=== PATIENT | male | born 1965 | race Caucasian/White ===

== ENCOUNTER 2021-03-10 22:08 | Inpatient (IN) ==
[2021-03-10] MEDS ORDERED: ALBUTEROL HFA 8 GM INHALER INH ONE (22:31)
[2021-03-10] MEDS ORDERED: SODIUM CHLORIDE 0.9% 1000ML 1,000 ML IV SCH (22:45)
--- NOTE | 2021-03-10 23:06 | Emergency Department Note ---
History of Present Illness General Chief complaint: Illness Stated complaint: POSITIVE FOR COVID, NOT GETTING BETTER Time Seen by Provider: 03/10/21 22:13 History of Present Illness Maximum Pain Intensity: 8 This 55-year-old presents to the ER complaining of worsening Covid symptoms Location: Generalized Quality: Hard to breathe Severity: Moderate Duration: Past 2 days Timing: Symptoms started a week ago Context: Patient was concerned and came in Modifying factors: better with rest; worse with activity Patient did a CVS test and was +1-week ago. Symptoms are gotten progressively worse. Patient complains of cough, difficulty breathing, body aches, malaise and generally not feeling well. 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 Pulse ox was 91% on room air. Home Medications Medication Instructions Recorded Confirmed Type clobetasol 1 applic TOPICAL BID 03/10/21 03/10/21 History gabapentin 800 mg PO TID 03/10/21 03/10/21 History meloxicam 15 mg PO HS 03/10/21 03/10/21 History omeprazole 40 mg PO DAILY 03/10/21 03/10/21 History tramadol 100 mg PO Q6 PRN 03/10/21 03/10/21 History Allergies Allergy/AdvReac Type Severity Reaction Status Date / Time No Known Allergies Allergy Unverified 03/10/21 22:43 Past Med/Surg History Medical History Back pain GERD (gastroesophageal reflux disease) Surgical History No pertinent past surgical history Social History Smoking Status: Never smoker Hx Alcohol Use: Yes Alcohol type: beer, wine and hard liquor Hx Substance Use: No Preferred Language: Greek Communication Ability: Effective 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 Beliefs That Will Affect Care: None Current Living Situation: Spouse Other Information That Helps Us Care for You: No Feels Safe at Home: Yes Safety Concerns: Feels Safe At This Time Assistive Devices: Glasses Review of Systems A total of 10 systems reviewed and were otherwise negative Physical Exam Vital Signs Vital Signs - 24 hr 03/10/21 22:10 Temperature 36.2 C L Temperature Source Temporal Artery Scan Pulse Rate 93 H Pulse Rhythm Regular Pulse Strength Normal Respiratory Rate 20 Respiratory Effort / Characteristics Non-Labored Respiratory Depth Normal Respiratory Pattern Regular Blood Pressure Position Sitting Pulse Oximetry 91 Oxygen Delivery Method Room Air Sepsis Recent Fever Within 48 Hours Yes Sepsis New/Unexplained Change in Mental Status No Sepsis Action Taken by Nursing No Action Required VITALS: Vitals are noted on the nurse's note and reviewed by myself. Vital signs pulse ox 91% on room air. GENERAL: Ill-appearing male coughing who I placed on nasal cannula and seems somewhat better. SKIN: The skin was without rashes, erythema, edema, or bruising. There is no tenting of the skin. Capillary reflex less than 2 seconds. HEAD: Normocephalic atraumatic. EARS: External auditory canals clear, tympanic membranes pearly [place] without erythema or effusion bilaterally. EYES: Pupils equal round and reactive to light and accommodation. Conjunctivae without injection, sclerae without icterus. Extraocular movements intact. NOSE: Patent, turbinates without inflammation or discharge. No sinus tenderness. MOUTH: Mucous membranes mildly dry. Pharynx without erythema or exudate. Uvula midline. Airway patent. Tongue does not deviate. NECK: Supple without nuchal rigidity. No lymphadenopathy. No thyromegaly. Cervical spine is nontender. No JVD. HEART: Regular rate and rhythm. LUNGS: Mild diffuse inspiratory and end expiratory wheezes, No retractions or accessory muscle use. ABDOMEN: Positive bowel sounds x 4. Normal tympanic percussion. Soft, nontender, without masses or organomegaly. Pitt sign negative. No guarding or rebound tenderness. No CVA tenderness MUSCULOSKELETAL: No muscle atrophy, erythema, or edema noted. NEURO: Patient was alert and oriented to person place and time. Normal sensation to light and sharp touch. No focal neurological deficits. Course Administered Medications Doxycycline Hyclate 100 mg/ (Dextrose) 110 mls @ 50 mls/hr IV NOW STA Stop: 03/11/21 02:04 Last Admin: 03/11/21 01:31 Dose: 50 mls/hr Documented by: [id number] Lactated Ringer's (Lr) 1,000 mls @ 500 mls/hr IV .Q2H STA Stop: 03/11/21 02:18 Last Admin: 03/11/21 01:38 Dose: 500 mls/hr Documented by: [id number] Discontinued Medications Albuterol (Albuterol Hfa 8 Gm Inhaler) 2 puffs INH NOW ONE Stop: 03/10/21 22:32 Last Admin: 03/10/21 23:00 Dose: 2 puffs Documented by: [id number] Sodium Chloride (Nss 1000ml) 1,000 mls @ 999 mls/hr IV .Q1H1M JANICE Stop: 03/10/21 23:45 Last Infusion: 03/11/21 00:41 Dose: 0 mls/hr Documented by: [id number] Admin: 03/10/21 23:00 Dose: 999 mls/hr Documented by: [id number] Dexamethasone (Decadron) 1.5 mls @ 1 mls/min IV ONE STA Stop: 03/10/21 23:32 Last Admin: 03/11/21 00:20 Dose: 1 mls/min Documented by: [id number] Ioversol (Optiray 300 100ml) 90 ml IV ONCE ONE Stop: 03/11/21 00:00 Last Admin: 03/11/21 00:00 Dose: 90 ml Documented by: [id number] Oxycodone HCl (Oxycodone Hcl Ir 5 Mg Tab (Immediate Release)) 5 mg PO NOW STA Stop: 03/10/21 23:54 Last Admin: 03/11/21 00:20 Dose: 5 mg Documented by: [id number] Medical Decision Making Medical Records Attestation: I reviewed the patient's medical records. Home Medications Current Medication List: was personally reviewed by me Laboratory Data Attestation: I reviewed the patient's lab results. Result diagrams: 03/10/21 23:26 03/10/21 23:26 Lab Results 03/10/21 03/10/21 03/10/21 Range/Units 22:47 22:47 23:26 WBC 6.22 (4.8-10.8) K/uL RBC 5.34 (4.7-6.1) M/uL Hgb 17.4 (14.0-18.0) g/dL Hct 50.9 (42-52) % MCV 95.3 (80-100) fL MCH 32.6 (25-34) pg MCHC 34.2 (32-36) g/dL RDW Std Deviation 46.9 H (36.4-46.3) fL RDW Coeff of Mary 13.4 (11.5-14.5) % Plt Count 195 (130-400) K/uL MPV 10.8 H (7.4-10.4) fL Immature Gran % (Auto) 0.2 % Neut % (Auto) 72.9 % Lymph % (Auto) 18.0 % Gonzales % (Auto) 8.5 % Eos % (Auto) 0.2 % Baso % (Auto) 0.2 % Neut # (Auto) 4.54 (1.4-6.5) K/uL Lymph # (Auto) 1.12 L (1.2-3.4) K/uL Gonzales # (Auto) 0.53 (0.11-0.59) K/uL Eos # (Auto) 0.01 (0-0.5) K/uL Baso # (Auto) 0.01 (0-0.2) K/uL Immature Gran # (Auto) 0.01 (0.00-0.02) K/uL PT (9.0-12.0) Seconds INR (0.9-1.1) APTT (21.0-31.0) Seconds PTT Ratio Sodium (136-145) mmol/L Potassium (3.5-5.1) mmol/L Chloride (98-107) mmol/L Carbon Dioxide (21-32) mmol/L Anion Gap (3-11) BUN (7-18) mg/dl Creatinine (0.6-1.4) mg/dl Est Cr Clr Drug Dosing ml/min Est GFR ( Amer) Est GFR (Non-Af Amer) BUN/Creatinine Ratio (10-20) Glucose (70-99) mg/dl Lactate (0.4-2.0) mmol/L Calcium (8.5-10.1) mg/dl Magnesium (1.8-2.4) mg/dl Total Bilirubin (0.2-1) mg/dl AST (15-37) U/L ALT (12-78) U/L Alkaline Phosphatase (45-117) U/L Troponin I (0-0.045) ng/ml Total Protein (6.4-8.2) gm/dl Albumin (3.4-5.0) gm/dl Globulin (2.5-4.0) gm/dl Albumin/Globulin Ratio (0.9-2) Lipase (73-393) U/L COVID-19 Eval Order CovFluRsv at [facility] SARS-CoV-2 (PCR) POSITIVE A* (Negative) Influenza Type A (PCR) Negative (Neg) Influenza Type B (PCR) Negative (Neg) RSV (RT-PCR) Negative (Neg) 03/10/21 03/10/21 03/10/21 Range/Units 23:26 23:26 23:26 WBC (4.8-10.8) K/uL RBC (4.7-6.1) M/uL Hgb (14.0-18.0) g/dL Hct (42-52) % MCV (80-100) fL MCH (25-34) pg MCHC (32-36) g/dL RDW Std Deviation (36.4-46.3) fL RDW Coeff of Mary (11.5-14.5) % Plt Count (130-400) K/uL MPV (7.4-10.4) fL Immature Gran % (Auto) % Neut % (Auto) % Lymph % (Auto) % Gonzales % (Auto) % Eos % (Auto) % Baso % (Auto) % Neut # (Auto) (1.4-6.5) K/uL Lymph # (Auto) (1.2-3.4) K/uL Gonzales # (Auto) (0.11-0.59) K/uL Eos # (Auto) (0-0.5) K/uL Baso # (Auto) (0-0.2) K/uL Immature Gran # (Auto) (0.00-0.02) K/uL PT 11.0 (9.0-12.0) Seconds INR 1.1 (0.9-1.1) APTT 27.3 (21.0-31.0) Seconds PTT Ratio 1.0 Sodium 140 (136-145) mmol/L Potassium 4.3 (3.5-5.1) mmol/L Chloride 106 (98-107) mmol/L Carbon Dioxide 30 (21-32) mmol/L Anion Gap 4.0 (3-11) BUN 13 (7-18) mg/dl Creatinine 1.05 (0.6-1.4) mg/dl Est Cr Clr Drug Dosing 100.1 ml/min Est GFR ( Amer) 92.2 Est GFR (Non-Af Amer) 79.5 BUN/Creatinine Ratio 12.4 (10-20) Glucose 136 H (70-99) mg/dl Lactate 2.6 H* (0.4-2.0) mmol/L Calcium 8.4 L (8.5-10.1) mg/dl Magnesium 2.2 (1.8-2.4) mg/dl Total Bilirubin 0.5 (0.2-1) mg/dl AST 30 (15-37) U/L ALT 30 (12-78) U/L Alkaline Phosphatase 62 (45-117) U/L Troponin I < 0.015 (0-0.045) ng/ml Total Protein 7.6 (6.4-8.2) gm/dl Albumin 3.2 L (3.4-5.0) gm/dl Globulin 4.4 H (2.5-4.0) gm/dl Albumin/Globulin Ratio 0.7 L (0.9-2) Lipase 123 (73-393) U/L COVID-19 Eval Order SARS-CoV-2 (PCR) (Negative) Influenza Type A (PCR) (Neg) Influenza Type B (PCR) (Neg) RSV (RT-PCR) (Neg) Imaging Data Attestation: I personally reviewed and interpreted this imaging study as follows: MDM Narrative Prior records/ancillary studies reviewed. Triage Nursing notes reviewed. The patient's history was concerning for fever. Differential diagnosis: Etiologies such as viral syndrome, otitis, pharyngitis, pneumonia, influenza, meningitis, urinary tract infection, sepsis, bacteremia, as well as others were entertained. Physical examination: As above ER treatment provided: An order was placed for continuous cardiac monitoring. The monitor shows a rate of 60-1 20 with a sinus rhythm. IV fluids, albuterol On reassessment the patient felt better. Diagnostics interpreted by me: ECG: Normal sinus, left anterior fascicular block, no acute ST-T wave changes. Impression normal sinus rhythm with a left anterior fascicular block interpreted by myself EKG ordered for weakness I think arrhythmia is unlikely. EKG shows normal sinus rhythm with no interval abnormalities such as QT prolongation or WPW. There are no findings to suggest Brugada syndrome. Cardiac monitoring in the emergency department reveals no tachycardic or bradycardic dysrhythmia. Hypertrophic cardiomyopathy was considered but there are no clear historical elements pointing toward this. EKG is not suggestive. The QRS voltage is not extremely large and there are no suggestive Q waves. The labs revealed elevated lactic Blood cultures pending No leukocytosis Imaging studies: Chest x-ray with bilateral opacities concerning for Covid pneumonia Consultation: A consultation was placed with Dr. Durbin. The case was discussed and diagnostics were reviewed. The patient was evaluated in the ER for further treatment. This appears to be consistent with Covid pneumonia. Patient was feeling much worse. Sats dropped with ambulation. Medicine was consulted. He will be evaluated for possible admission. By the evaluation outlined above emergent etiologies such as otitis, pharyngitis, meningitis, urinary tract infection, as well as others were deemed relatively unlikely. The pt informed about the findings as listed above. All questions were answered and pleased with the treatment. The chart was completed utilizing [employer]. Java Speech voice recognition software. Grammatical errors, random word insertions, pronoun errors, and incomplete sentences are an occassional consequence of this system due to software limitations, ambient noise, and hardware issues. Any formal questions or concerns about the content, text, or information contained within the body of this dictation should be directly addressed to the physician assistant men's lacrosse coach for clarification. Impression & Plan COVID-19 Discharge Plan Visit Data Chief Complaint: Illness Stated Complaint: POSITIVE FOR COVID, NOT GETTING BETTER ED Provider: Srikanth Reese ED Midlevel Provider: Anila Pike Discharge Problem: COVID-19 Patient Disposition: Admitted As Inpatient Condition: Fair Discharge Instructions Interventions: ED Discharge Assessment Last Done: 03/11/21 00:39
[2021-03-10] MEDS ORDERED: dexAMETHasone 1.5 ML IV STA (23:31)
[2021-03-10 23:36] LABS: Basophils # (auto) 0.01 K/uL (0-0.2); Basophils % (auto) 0.2 %; Eosinophils # (auto) 0.01 K/uL (0-0.5); Eosinophils % (auto) 0.2 %; Hematocrit (blood only) 50.9 % (42-52); Hemoglobin 17.4 g/dL (14.0-18.0); Immature Granulocytes # (auto) 0.01 K/uL (0.00-0.02); Immature Granulocytes % (auto) 0.2 %; Lymphocytes # (auto) 1.12 K/uL (1.2-3.4); Mean Corpuscular Hemoglobin 32.6 pg (25-34); Mean Corpuscular Hgb Conc 34.2 g/dL (32-36); Mean Corpuscular Volume 95.3 fL (80-100); Mean Platelet Volume 10.8 fL (7.4-10.4); Monocytes # (auto) 0.53 K/uL (0.11-0.59); Monocytes % (auto) 8.5 %; Neutrophils # (auto) 4.54 K/uL (1.4-6.5); Neutrophils % (auto) 72.9 %; Platelet Count 195 K/uL (130-400); RDW Coefficient of Variation 13.4 % (11.5-14.5); RDW Standard Deviation 46.9 fL (36.4-46.3); Red Blood Count 5.34 M/uL (4.7-6.1); White Blood Count 6.22 K/uL (4.8-10.8)
[2021-03-10 23:50] LABS: INR 1.1 (0.9-1.1); Partial Thromboplastin Time 27.3 Seconds (21.0-31.0)
[2021-03-10] MEDS ORDERED: DOXYCYCLINE HYCLATE 100 MG in DEXTROSE 5% 100 ML IV STA (23:53)
[2021-03-10] MEDS ORDERED: oxyCODONE HCL IR 5 MG TAB (IMMEDIATE RELEASE) PO STA (23:53)
[2021-03-10 23:55] LABS: Alanine Aminotransferase 30 U/L (12-78); Albumin Level 3.2 gm/dl (3.4-5.0); Aspartate Aminotransferase 30 U/L (15-37); BUN Creatinine Ratio 12.4 (10-20); Blood Urea Nitrogen 13 mg/dl (7-18); Calcium 8.4 mg/dl (8.5-10.1); Carbon Dioxide 30 mmol/L (21-32); Chloride 106 mmol/L (98-107); Creatinine Clr Calc Pharmacy 100.1 ml/min; Est GFR (African American) 92.2; Est GFR (Non-African American) 79.5; Glucose 136 mg/dl (70-99); Magnesium 2.2 mg/dl (1.8-2.4); Potassium 4.3 mmol/L (3.5-5.1); Sodium 140 mmol/L (136-145)
[2021-03-10 23:59] LABS: Albumin Globulin Ratio 0.7 (0.9-2); Alkaline Phosphatase 62 U/L (45-117); Bilirubin,Total 0.5 mg/dl (0.2-1); Globulin 4.4 gm/dl (2.5-4.0); Total Protein 7.6 gm/dl (6.4-8.2); Troponin I < 0.015 ng/ml (0-0.045)
[2021-03-10] MEDS ORDERED: OPTIRAY 300 100mL IV ONE (23:59)
--- NOTE | 2021-03-10 23:59 | History & Physical Report ---
Date of Service March 10, 2021 Assessment & Plan (1) COVID-19: COVID-19 pneumonia Severe disease given initial O2 sats of 91 on room air upon arrival at the ER Superimposed bacterial infection, no overt sepsis for now Hypertension, stable Hyperglycemia rule out DM Chronic back pain IOANA, CPAP noncompliance Med telemetry Supplemental O2 Decadron Patient refusing Remdesivir for now. MDI RTC Pulmonology consult if without improvement Check hemoglobin A1c DVT prophylaxis Lovenox subcu Full code Text document was generated using [employer] voice recognition software. It may contain grammatical or spelling errors. Kindly contact undersigned for clarification of any documentation item in question. History of Present Illness Chief Complaint: Shortness of breath, worsening Covid as per patient Primary Care Provider: Ayo Gotti MD History obtained from patient and records. Medical history significant for hypertension, chronic back pain, IOANA (CPAP noncompliance). Last week patient noted flulike symptoms, dry cough symptoms. 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 Outpatient COVID-19 test at a local pharmacy last week was positive. Cough later noted to be junky. Worsening shortness of breath especially on exertion. Patient denies chest pain. Achy right-sided abdominal pain without change in bowel habits. Poor appetite. Worsening chronic back pain. Patient consulted ER for evaluation. O2 sats noted to be 91 upon arrival at the ER. 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 Allergies Allergy/AdvReac Type Severity Reaction Status Date / Time No Known Allergies Allergy Unverified 03/10/21 22:43 Home Medications Medication Instructions Recorded Confirmed Type clobetasol 1 applic TOPICAL BID 03/10/21 03/10/21 History gabapentin 800 mg PO TID 03/10/21 03/10/21 History meloxicam 15 mg PO HS 03/10/21 03/10/21 History omeprazole 40 mg PO DAILY 03/10/21 03/10/21 History tramadol 100 mg PO Q6 PRN 03/10/21 03/10/21 History Past Med/Surg History Medical History Back pain GERD (gastroesophageal reflux disease) Surgical History No pertinent past surgical history Social History Smoking Status: Never smoker Hx Alcohol Use: Yes Alcohol type: beer, wine and hard liquor Hx Substance Use: No Preferred Language: Kazakh Communication Ability: Effective Cigar Bander Hand Required: No Beliefs That Will Affect Care: None Current Living Situation: Spouse Other Information That Helps Us Care for You: No Feels Safe at Home: Yes Safety Concerns: Feels Safe At This Time Assistive Devices: Glasses Review of Systems Review of Systems: As per HPI, all 10 systems reviewed, all other ROS negative Physical Exam Physical Exam: GENERAL: uncomfortable, slightly anxious, obese, no respiratory distress SKIN: Normal color, warm HEENT: [place] palpebral conjunctivae, no ptosis, dry buccal mucosa NECK : Supple, short neck, no tenderness CHEST : Decreased breath sounds, no tenderness HEART : RRR, no obvious murmurs ABDOMEN: Some distention, nontender BACK : Chronic low back tenderness EXTREMITIES : No LE swelling/tenderness, no other conspicuous deformities noted NEUROLOGIC : Coherent, no facial asymmetry, no other gross focality Results & Data Results & Data ([facility]) Vital Signs (Past 12 Hours) Vital Signs Temp Pulse Resp Pulse Ox 03/10/21 22:10 36.2 C L 93 H 20 91 Laboratory Results Laboratory Results WBC 6.22 K/uL (4.8-10.8) 03/10/21 23:26 RBC 5.34 M/uL (4.7-6.1) 03/10/21 23:26 Hgb 17.4 g/dL (14.0-18.0) 03/10/21 23:26 Hct 50.9 % (42-52) 03/10/21 23:26 MCV 95.3 fL (80-100) 03/10/21 23:26 MCH 32.6 pg (25-34) 03/10/21 23:26 MCHC 34.2 g/dL (32-36) 03/10/21 23:26 RDW Std Deviation 46.9 fL (36.4-46.3) H 03/10/21 23:26 RDW Coeff of Mary 13.4 % (11.5-14.5) 03/10/21 23: Plt Count 195 K/uL (130-400) 03/10/21 23: MPV 10.8 fL (7.4-10.4) H 03/10/21 23: Immature Gran % (Auto) 0.2 % 03/10/21 23: Neut % (Auto) 72.9 % 03/10/21 23: Lymph % (Auto) 18.0 % 03/10/21 23: [place]osh[place] % (Auto) 8.5 % 03/10/21 23: Eos % (Auto) 0.2 % 03/10/21 23: Baso % (Auto) 0.2 % 03/10/21: Neut # (Auto) 4.54 K/uL (1.4-6.5) 03/10/21: Lymph # (Auto) 1.12 K/uL (1.2-3.4) L 03/10/21: [place]oshone # (Auto) 0.53 K/uL (0.11-0.59) 03/10/21 23: Eos # (Auto) 0.01 K/uL (0-0.5) 03/10/21 23: Baso # (Auto) 0.01 K/uL (0-0.2) 03/10/21: Immature Gran # (Auto) 0.01 K/uL (0.00-0.02) 03/10/21 23: PT 11.0 Seconds (9.0-12.0) 03/10/21: INR 1.1 (0.9-1.1) 03/10/21 23: APTT 27.3 Seconds (21.0-31.0) 03/10/21: PTT Ratio 1.0 03/10/21 23: Sodium 140 mmol/L (136-145) 03/10/21: Potassium 4.3 mmol/L (3.5-5.1) 03/10/21: Chloride 106 mmol/L (98-107) 03/10/21: Carbon Dioxide 30 mmol/L (21-32) 03/10/21: Anion Gap 4.0 (3-11) 05/08/21 23:26 BUN 13 mg/dl (7-18) 03/10/21 23: Creatinine 1.05 mg/dl (0.6-1.4) 03/10/21: Est Cr Clr Drug Dosing 100.1 ml/min 03/10/21 23:26 Est GFR ( Amer) 92.2 03/10/21 23: Est GFR (Non-Af Amer) 79.5 03/10/21 23: BUN/Creatinine Ratio 12.4 (10-20) 03/10/21 23: Glucose 136 mg/dl (70-99) H 03/10/21: Calcium 8.4 mg/dl (8.5-10.1) L 03/10/21: Magnesium 2.2 mg/dl (1.8-2.4) 03/10/21 23: AST 30 U/L (15-37) 03/10/21: ALT 30 U/L (12-78) 03/10/21 23: Albumin 3.2 gm/dl (3.4-5.0) L 03/10/21 23:26 COVID-19 Eval Order CovFluRsv at [facility] 03/10/21 22:47 Diagnostic Findings Chest x-ray as per my interpretation atelectasis, patchy infiltrates CT abdomen pelvis initial read: Mild patchy areas of increased density in the lung bases. Most of this appears to represent subsegmental atelectasis; however, there is a suspicion of some superimposed mild patchy infiltration, particularly in the lingula of the left upper lobe in the right middle lobe . No acute findings in the abdomen or pelvis. No evidence of bowel obstruction. The appendix is not identified; however, there is no evidence of distended appendix or regional inflammatory reaction. No abnormal fluid. EKG as per my interpretation : Rate 90, NSR, LAD, LAFB, no ischemia
[2021-03-11 00:15] LABS: Influenza A virus by PCR Negative (Neg); Influenza B virus by PCR Negative (Neg); RSV by PCR Negative (Neg)
[2021-03-11 00:16] LABS: Lipase 123 U/L (73-393)
[2021-03-11] MEDS ORDERED: LACTATED RINGER'S 1,000 ML IV STA (00:19)
[2021-03-11 00:23] LABS: SARS CoV2 RNA(COVID-19) InHosp POSITIVE (Negative)
[2021-03-11] MEDS ORDERED: oxyCODONE HCL IR 5 MG TAB (IMMEDIATE RELEASE) PO PRN (01:25)
[2021-03-11] MEDS ORDERED: MoRPHine SULFATE 4 MG/ML 1 ML CARP\\VIAL IV PRN (01:25)
[2021-03-11] MEDS ORDERED: LORazepam 0.25 MG/0.5 ML VIAL IV PRN (01:25)
[2021-03-11] MEDS ORDERED: ACETAMINOPHEN 325 MG TAB PO PRN (01:25)
[2021-03-11] MEDS ORDERED: LACTATED RINGER'S 1,000 ML IV SCH (02:20)
[2021-03-11] MEDS: cefTRIAXone SODIUM 2,000 MG in DEXTROSE 5% 50 ML IV SCH (03:33)
[2021-03-11 04:05] LABS: Appearance Urine Clear (Clear); Bacteria Urine Automated Negative (Negative); Bilirubin Urine Negative (Negative); Blood Urine Negative (Negative); Color Urine Dark Yellow; Epithelial Cell Urine Auto 20-30 /lpf (0-5); Glucose Urine UA Negative (Negative); Ketones Urine Trace (Negative); Leukocyte Esterase Urine Negative (Negative); Nitrite Urine Negative (Negative); Protein Urine Trace (Negative); RBC Urine Automated 0-4 /hpf (0-4); Specific Gravity Urine 1.034 (1.000-1.030); Urobilinogen Urine Negative (Negative)
[2021-03-11] MEDS ORDERED: LACTATED RINGER'S 1,000 ML IV ONE (05:25)
[2021-03-11 05:59] LABS: Base Excess ABG 1.2 mEq/L (-9-1.8); Basophils # (auto) 0.01 K/uL (0-0.2); Basophils % (auto) 0.2 %; HCO3 ABG 25 mmol/L (19-24); Hematocrit (blood only) 47.5 % (42-52); Hemoglobin 16.3 g/dL (14.0-18.0); Immature Granulocytes # (auto) 0.01 K/uL (0.00-0.02); Immature Granulocytes % (auto) 0.2 %; Lymphocytes # (auto) 0.69 K/uL (1.2-3.4); Lymphocytes % (auto) 12.9 %; Mean Corpuscular Hemoglobin 31.8 pg (25-34); Mean Corpuscular Hgb Conc 34.3 g/dL (32-36); Mean Corpuscular Volume 92.8 fL (80-100); Mean Platelet Volume 10.6 fL (7.4-10.4); Monocytes # (auto) 0.35 K/uL (0.11-0.59); Monocytes % (auto) 6.6 %; Neutrophils # (auto) 4.28 K/uL (1.4-6.5); Neutrophils % (auto) 80.1 %; Oxygen Saturation ABG 95.6 % (90-95); PCO2 ABG 38 mmHg (35-46); PO2 ABG 73 mmHg (80-95); Platelet Count 169 K/uL (130-400); RDW Coefficient of Variation 13.3 % (11.5-14.5); RDW Standard Deviation 45.3 fL (36.4-46.3); Red Blood Count 5.12 M/uL (4.7-6.1); White Blood Count 5.34 K/uL (4.8-10.8); pH ABG 7.44 (7.35-7.45)
[2021-03-11 06:01] LABS: Allen Test Pos (Pos)
[2021-03-11 06:24] LABS: Albumin Level 2.8 gm/dl (3.4-5.0); BUN Creatinine Ratio 12.9 (10-20); C Reactive Protein 2.03 mg/dl (0-0.29); Calcium 8.3 mg/dl (8.5-10.1); Creatinine Clr Calc Pharmacy 131.8 ml/min; Est GFR (Non-African American) 100.1; Potassium 4.5 mmol/L (3.5-5.1)
[2021-03-11 06:29] LABS: Albumin Globulin Ratio 0.7 (0.9-2); Bilirubin,Total 0.4 mg/dl (0.2-1); Ferritin 270.6 ng/ml (8-388); Globulin 4.3 gm/dl (2.5-4.0); Total Protein 7.1 gm/dl (6.4-8.2)
[2021-03-11] MEDS: LEVALBUTEROL TARTRATE 15 GM HFA.AER.AD INH SCH ×4 (07:08→19:26)
[2021-03-11] MEDS: ENOXAPARIN INJ 40 MG/0.4 ML SYR SQ SCH (07:48)
--- NOTE | 2021-03-11 08:17 | CT Scan Report ---
CT SCAN OF THE ABDOMEN AND PELVIS WITH IV CONTRAST CLINICAL HISTORY: Generalized abdominal pain. Covid. COMPARISON STUDY: No priors. TECHNIQUE: Following the IV administration of 90 cc of Optiray 300, CT scan of the abdomen and pelvi s is performed from the lung bases to the proximal femora. Images are reviewed in the axial, sagittal , and coronal planes. IV contrast was administered without complication. A dose lowering technique wa s utilized adhering to the principles of ALARA. CT DOSE: 1476.43 mGy.cm FINDINGS: Lung bases: The heart is normal in size and without pericardial effusion. There is patchy groundglass consolidation identified at both lung bases and trace pleural effusions. Liver: The contrast-enhanced liver is normal in size, contour, and attenuation. There is no intrahepa tic biliary ductal dilatation. The hepatic veins and portal veins are patent. Gallbladder: Unremarkable. Spleen: Normal in size and attenuation. Pancreas: Unremarkable. Adrenal glands: Unremarkable. Kidneys: The contrast enhanced kidneys are normal in size and without hydronephrosis. The kidneys enh ance symmetrically. A 1.3 cm cyst is noted in the left kidney. Abdominal vasculature: The abdominal aorta is normal in course and caliber. Bowel: No bowel obstruction is seen. The appendix is well-visualized and normal. Peritoneum: There is no intraperitoneal free air or abdominal ascites. Lymphadenopathy: None. Pelvic viscera: The bladder, prostate, and seminal vesicles are normal as visualized. Skeletal structures: No lytic or blastic lesions are seen. There is mild lumbosacral spondylosis. IMPRESSION: 1. There are no acute infectious or inflammatory findings in the abdomen or pelvis. 2. Multifocal groundglass consolidation at the lung bases is consistent with the reported history of a viral pneumonia. Radiographic follow-up to resolution is recommended. 3. Trace pleural effusions. 4. Additional findings as above. ACT 112: Negative or not required by law. Electronically signed by: Kenan Maria M.D. 03/11/2021 8:16 AM
--- NOTE | 2021-03-11 08:30 | XRay Report ---
XR chest 1V portable CLINICAL HISTORY: SEPSIS COMPARISON STUDY: Chest radiograph January 10, 2011. FINDINGS: Lung volumes are at the lower limits of normal. There is no pneumothorax or pleural the eff usion. No evidence for pulmonary edema. Cardiac size is at the upper limits of normal. There are are mild multifocal bilateral airspace opacities, greater on the left. IMPRESSION: Mild multifocal bilateral airspace opacities, greater within the left lung. The findings suggest an infectious process such as viral pneumonia. ACT 112: Negative or not required by law. Electronically signed by: Armen Madsen M.D. 03/11/2021 8:29 AM
[2021-03-11] MEDS: traMADol HCL 50 MG TABLET PO PRN ×3 (08:59→20:32)
[2021-03-11] MEDS: MELOXICAM 7.5 MG TAB PO SCH (09:00)
[2021-03-11] MEDS: GABAPENTIN 800 MG TAB PO SCH ×3 (09:00→20:33)
[2021-03-11] MEDS: PANTOprazole 40 MG TAB PO SCH (09:00)
--- NOTE | 2021-03-11 11:50 | Electrocardiogram Report ---
Test Reason : Blood Pressure : / mmHG Vent. Rate : 088 BPM Atrial Rate : 088 BPM P-R Int : 166 ms QRS Dur : 100 ms QT Int : 372 ms P-R-T Axes : 025 -49 027 degrees QTc Int : 450 ms Normal sinus rhythm Left anterior fascicular block Poor R wave progression, consider anterior IL vs. lead placement vs. LVH Abnormal ECG When compared with ECG of 10-JAN-2011 15:40, No significant change Confirmed by Srikanth Martinez ([id number]) on 03/11/2021 11:50:01 AM Referred By: REFERRED SELF Confirmed By:Srikanth Martinez
--- NOTE | 2021-03-11 12:52 | Hospitalist Progress Note ---
Date of Service March 11, 2021 Assessment & Plan (1) Pneumonia due to COVID-19 virus: Improved on decadron. Declined remdesivir on admission. Was also started on antibiotics. Hypoxia has now resolved. Plan for continued monitoring overnight, two step in am and likely dc to home. (2) Chronic pain: cont mobic and gabapenting with prn tramadol per home regimen. (3) DVT prophylaxis: Lovenox Full Code Dispo-to home in am DO Girish Cordero Hospitalist Admission and Anticipated Discharge Date Admission Date: March 10, 2021 Subjective 55 yo M admitted with covid pneumonia Improved oxygenation and symptoms overnight patient feels back to his baseline tolerating regular food no SOB or chest pain ambulating Review of Systems Review of Systems: All systems reviewed & are unremarkable except as noted in Subjective Physical Exam Physical Exam: CONSTITUTIONAL: WNWD, vitals as above, generally well-appeari ng EYES: normal conjunctivae, no scleral icterus ENT: external ear and nose normal, MMM RESPIRATORY: clear to auscultation bilaterally, no crackles, rales or wheezes, normal respiratory effort CARDIOVASCULAR: regular rate and rhythm, S1 and 2 heard without murmurs, gallops or rubs, no JVD, no peripheral edema CHEST: inspection of chest was normal GASTROINTESTINAL: soft, nontender, nondistended MUSCULOSKELETAL: strength 5/5 throughout, head is normocephalic and atraumatic, neck supple, normal palpation of chest wall without tenderness SKIN: warm and dry NEUROLOGIC: CN 2-12 grossly intact, no sensory deficit, normal cognition, normal speech PSYCHIATRIC: alert cooperative and oriented to person, place and time. Results & Data Results & Data ([facility] [place]) Vital Signs (Past 12 Hours) Vital Signs Temp Pulse Pulse Resp BP BP Pulse Ox 03/11/21 11:02 36.7 C 69 18 130/80 94 03/11/21 10:58 66 20 93 03/11/21 08:19 64 03/11/21 07:20 36.7 C 63 18 128/77 93 03/11/21 07:08 93 H 20 956 H 03/11/21 04:41 65 18 119/79 94 03/11/21 01:05 37.8 C H 82 20 117/80 98 Laboratory Results Short CBC 03/10/21 03/11/21 Range/Units 23:26 05:35 WBC 6.22 5.34 (4.8-10.8) K/uL Hgb 17.4 16.3 (14.0-18.0) g/dL Hct 50.9 47.5 (42-52) % Plt Count 195 169 (130-400) K/uL BMP 03/10/21 03/11/21 23:26 05:35 Sodium 140 137 Potassium 4.3 4.5 Chloride 106 105 Carbon Dioxide 30 31 BUN 13 10 Creatinine 1.05 0.81 Glucose 136 H 127 H Calcium 8.4 L 8.3 L Cardiac Enzymes 03/10/21 Range/Units 23:26 Troponin I < 0.015 (0-0.045) ng/ml Liver Function 03/10/21 03/11/21 Range/Units 23:26 05:35 Total Bilirubin 0.5 0.4 (0.2-1) mg/dl AST 30 26 (15-37) U/L ALT 30 24 (12-78) U/L Alkaline Phosphatase 62 52 (45-117) U/L Albumin 3.2 L 2.8 L (3.4-5.0) gm/dl Urine 03/11/21 Range/Units 03:55 Urine Color Dark Yellow Urine Appearance Clear (Clear) Urine pH 6.0 (4.5-7.5) Ur Specific [place] 1.034 H (1.000-1.030) Urine Protein Trace H (Negative) Urine Glucose (UA) Negative (Negative) Medications Administered Current Inpatient Medications Acetaminophen (Acetaminophen 325 Mg Tab) 650 mg PO Q4H PRN PRN Reason: Pain or Fever Stop: 04/10/21 01:24 Doxycycline Hyclate (Doxycycline Hyclate 100 Mg Cap) 100 mg PO BID [facility] Stop: 03/18/21 20:59 Enoxaparin Sodium (Enoxaparin Inj 40 Mg/0.4 Ml Syr) 40 mg SQ QAM JANICE Stop: 04/10/21 08:59 Last Admin: 03/11/21 07:48 Dose: 40 mg Documented by: Gabapentin (Gabapentin 800 Mg Tab) 800 mg PO TID JANICE Stop: 04/10/21 08:59 Last Admin: 03/11/21 09:00 Dose: 800 mg Documented by: Dexamethasone 6 mg/ Syringe 1.5 mls @ 1 mls/min IV DAILY JANICE Stop: 04/11/21 08:59 Lorazepam (Ativan) 0.25 mg in 0.5 mls @ 0.5 mls/min IV Q4H PRN PRN Reason: Anxiety Stop: 04/10/21 01:24 Ceftriaxone Sodium 2,000 mg/ (Dextrose) 70 mls @ 100 mls/hr IV Q24H [facility]; Protocol Stop: 03/18/21 02:59 Last Infusion: 03/11/21 04:15 Dose: Infused Documented by: Lactated Ringer's (Lr) 1,000 mls @ 80 mls/hr IV .[id number] ONE Stop: 03/11/21 17:54 Last Admin: 03/11/21 06:19 Dose: 80 mls/hr Documented by: Levalbuterol HCl (Levalbuterol Tartrate 15 Gm Hfa.Aer.Ad) 2 puffs INH QIDR [facility] Stop: 04/10/21 06:59 Last Admin: 03/11/21 10:57 Dose: 2 puffs Documented by: Meloxicam (Meloxicam 7.5 Mg Tab) 15 mg PO QAM [facility] Stop: 04/10/21 08:59 Last Admin: 03/11/21 09:00 Dose: 15 mg Documented by: Morphine Sulfate (Morphine Sulfate 4 Mg/Ml 1 Ml Carp\Vial) 4 mg IV Q4H PRN PRN Reason: Pain Stop: 03/25/21 01:24 Oxycodone HCl (Oxycodone Hcl Ir 5 Mg Tab (Immediate Release)) 5 - 10 mg PO QID PRN PRN Reason: Pain Stop: 03/25/21 01:24 Pantoprazole Sodium (Pantoprazole 40 Mg Tab) 40 mg PO DAILY [facility] Stop: 04/10/21 08:59 Last Admin: 03/11/21 09:00 Dose: 40 mg Documented by: Tramadol HCl (Tramadol Hcl 50 Mg Tablet) 100 mg PO Q6 PRN PRN Reason: Severe Pain (Scale Score 7-10) Stop: 04/10/21 07:49 Last Admin: 03/11/21 08:59 Dose: 100 mg Documented by:
[2021-03-11] MEDS: DOXYCYCLINE HYCLATE 100 MG CAP PO SCH (20:33)
[2021-03-11] MEDS ORDERED: MELOXICAM 7.5 MG TAB PO SCH (21:00)
[2021-03-12] MEDS: cefTRIAXone SODIUM 2,000 MG in DEXTROSE 5% 50 ML IV SCH (03:31)
[2021-03-12 06:42] LABS: Hematocrit (blood only) 45.6 % (42-52); Hemoglobin 15.4 g/dL (14.0-18.0); Mean Corpuscular Hemoglobin 31.8 pg (25-34); Mean Corpuscular Hgb Conc 33.8 g/dL (32-36); Mean Corpuscular Volume 94.2 fL (80-100); Mean Platelet Volume 10.9 fL (7.4-10.4); Platelet Count 211 K/uL (130-400); RDW Coefficient of Variation 13.3 % (11.5-14.5); RDW Standard Deviation 46.1 fL (36.4-46.3); Red Blood Count 4.84 M/uL (4.7-6.1); White Blood Count 5.39 K/uL (4.8-10.8)
[2021-03-12 07:09] LABS: BUN Creatinine Ratio 20.5 (10-20); Calcium 9.1 mg/dl (8.5-10.1); Creatinine Clr Calc Pharmacy 139.6 ml/min; Est GFR (Non-African American) 102.7
[2021-03-12 07:10] LABS: C Reactive Protein 1.06 mg/dl (0-0.29)
[2021-03-12] MEDS: LEVALBUTEROL TARTRATE 15 GM HFA.AER.AD INH SCH ×2 (07:17→10:59)
[2021-03-12 07:52] LABS: Estimated Average Glucose 117 mg/dl; Hemoglobin A1C 5.7 % (4.5-5.6)
[2021-03-12] MEDS: MELOXICAM 7.5 MG TAB PO SCH (08:03)
[2021-03-12] MEDS: DOXYCYCLINE HYCLATE 100 MG CAP PO SCH (08:03)
[2021-03-12] MEDS: ENOXAPARIN INJ 40 MG/0.4 ML SYR SQ SCH (08:04)
[2021-03-12] MEDS: GABAPENTIN 800 MG TAB PO SCH (08:04)
[2021-03-12] MEDS: PANTOprazole 40 MG TAB PO SCH (08:04)
[2021-03-12] MEDS: traMADol HCL 50 MG TABLET PO PRN (08:06)
[2021-03-12] MEDS ORDERED: dexAMETHasone 6 MG in SYRINGE 0 ML IV SCH (09:00)
--- NOTE | 2021-03-12 10:08 | Discharge Summary ---
Date of Service March 12, 2021 Admission HPI Per Admitting Provider History obtained from patient and records. Medical history significant for hypertension, chronic back pain, IOANA (CPAP noncompliance). Last week patient noted flulike symptoms, dry cough symptoms. 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 Outpatient COVID-19 test at a local pharmacy last week was positive. Cough later noted to be junky. Worsening shortness of breath especially on exertion. Patient denies chest pain. Achy right-sided abdominal pain without change in bowel habits. Poor appetite. Worsening chronic back pain. Patient consulted ER for evaluation. O2 sats noted to be 91 upon arrival at the ER. 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 Admission Exam Per Admitting Provider GENERAL: uncomfortable, slightly anxious, obese, no respiratory distress SKIN: Normal color, warm HEENT: [place] palpebral conjunctivae, no ptosis, dry buccal mucosa NECK : Supple, short neck, no tenderness CHEST : Decreased breath sounds, no tenderness HEART : RRR, no obvious murmurs ABDOMEN: Some distention, nontender BACK : Chronic low back tenderness EXTREMITIES : No LE swelling/tenderness, no other conspicuous deformities noted NEUROLOGIC : Coherent, no facial asymmetry, no other gross focality Principal Diagnosis COVID pneumonia Discharge Exam CONSTITUTIONAL: WNWD, vitals as above, generally well-appearing EYES: normal conjunctivae, no scleral icterus ENT: external ear and nose normal, MMM RESPIRATORY: clear to auscultation bilaterally, no crackles, rales or wheezes, normal respiratory effort CARDIOVASCULAR: regular rate and rhythm, S1 and 2 heard without murmurs, gallops or rubs, no JVD, no peripheral edema CHEST: inspection of chest was normal GASTROINTESTINAL: soft, nontender, nondistended MUSCULOSKELETAL: strength 5/5 throughout, head is normocephalic and atraumatic, neck supple, normal palpation of chest wall without tenderness SKIN: warm and dry NEUROLOGIC: CN 2-12 grossly intact, no sensory deficit, normal cognition, normal speech PSYCHIATRIC: alert cooperative and oriented to person, place and time. Discharge Data Allergies Allergy/AdvReac Type Severity Reaction Status Date / Time No Known Allergies Allergy Unverified 03/10/21 22:43 Ordered Studies Laboratory Results WBC 5.39 K/uL (4.8-10.8) 03/12/21 06:21 RBC 4.84 M/uL (4.7-6.1) 03/12/21 06:21 Hgb 15.4 g/dL (14.0-18.0) 03/12/21 06:21 Hct 45.6 % (42-52) 03/12/21 06:21 MCV 94.2 fL (80-100) 03/12/21 06:21 MCH 31.8 pg (25-34) 03/12/21 06:21 MCHC 33.8 g/dL (32-36) 03/12/21 06:21 RDW Std Deviation 46.1 fL (36.4-46.3) 03/12/21 06: RDW Coeff of Mary 13.3 % (11.5-14.5) 03/12/21 06:21 Plt Count 211 K/uL (130-400) 03/12/21 06:21 MPV 10.9 fL (7.4-10.4) H 03/12/21 06:21 Immature Gran % (Auto) 0.2 % 03/11/21 05:35 Neut % (Auto) 80.1 % 03/11/21 05:35 Lymph % (Auto) 12.9 % 03/11/21 05:35 [place] % (Auto) 6.6 % 03/11/21 05:35 Eos % (Auto) 0.0 % 03/11/21 05:35 Baso % (Auto) 0.2 % 03/11/21 05:35 Neut # (Auto) 4.28 K/uL (1.4-6.5) 03/11/21 05:35 Lymph # (Auto) 0.69 K/uL (1.2-3.4) L 03/11/21 05:35 [place] # (Auto) 0.35 K/uL (0.11-0.59) 03/11/21 05:35 Eos # (Auto) 0.00 K/uL (0-0.5) 03/11/21 05:35 Baso # (Auto) 0.01 K/uL (0-0.2) 03/11/21 05:35 Immature Gran # (Auto) 0.01 K/uL (0.00-0.02) 03/11/21 05:35 PT 11.0 Seconds (9.0-12.0) 03/10/21 23:26 INR 1.1 (0.9-1.1) 03/10/21 23:26 APTT 27.3 Seconds (21.0-31.0) 03/10/21 23: PTT Ratio 1.0 03/10/21 23:26 ABG pH 7.44 (7.35-7.45) 03/11/21 05:35 ABG pCO2 38 mmHg (35-46) 03/11/21 05:35 ABG pO2 73 mmHg (80-95) L 03/11/21 05:35 ABG HCO3 25 mmol/L (19-24) H 03/11/21 05:35 ABG O2 Saturation 95.6 % (90-95) H 03/11/21 05:35 ABG Base Excess 1.2 mEq/L (-9-1.8) 03/11/21 05:35 Satya Test Pos (Pos) 03/11/21 05:35 Barometric Pressure 734.2 mm/Hg 03/11/21 05:35 Oxygen Given 4 03/11/21 05:35 Sodium 141 mmol/L (136-145) 03/12/21 06:21 Potassium 4.0 mmol/L (3.5-5.1) 03/12/21 06:21 Chloride 108 mmol/L (98-107) H 03/12/21 06:21 Carbon Dioxide 29 mmol/L (21-32) 03/12/21 06:21 Anion Gap 4.0 (3-11) 03/12/21 06:21 BUN 16 mg/dl (7-18) D 03/12/21 06:21 Creatinine 0.76 mg/dl (0.6-1.4) 03/12/21 06:21 Est Cr Clr Drug Dosing 139.6 ml/min 03/12/21 06:21 Est GFR ( Amer) 119.0 03/12/21 06:21 Est GFR (Non-Af Amer) 102.7 03/12/21 06:21 BUN/Creatinine Ratio 20.5 (10-20) H 03/12/21 06:21 Glucose 93 mg/dl (70-99) 03/12/21 06:21 Estimat Average Glucose 117 mg/dl 03/10/21 23:26 Hemoglobin A1c 5.7 % (4.5-5.6) H 03/10/21 23:26 Lactate 1.5 mmol/L (0.4-2.0) 03/11/21 01:21 Calcium 9.1 mg/dl (8.5-10.1) 03/12/21 06:21 Magnesium 2.2 mg/dl (1.8-2.4) 03/10/21 23:26 Ferritin 270.6 ng/ml (8-388) 03/11/21 05:35 Total Bilirubin 0.4 mg/dl (0.2-1) 03/11/21 05:35 AST 26 U/L (15-37) 03/11/21 05:35 ALT 24 U/L (12-78) 03/11/21 05:35 Alkaline Phosphatase 52 U/L (45-117) 03/11/21 05:35 Troponin I < 0.015 ng/ml (0-0.045) 03/10/21 23:26 C-Reactive Protein 1.06 mg/dl (0-0.29) H 03/12/21 06:21 Total Protein 7.1 gm/dl (6.4-8.2) 03/11/21 05:35 Albumin 2.8 gm/dl (3.4-5.0) L 03/11/21 05:35 Globulin 4.3 gm/dl (2.5-4.0) H 03/11/21 05:35 Albumin/Globulin Ratio 0.7 (0.9-2) L 03/11/21 05:35 Lipase 123 U/L (73-393) 03/10/21 23:26 Procalcitonin 0.06 ng/ml (0-0.5) 03/12/21 06:21 Urine Color Dark Yellow 03/11/21 03:55 Urine Appearance Clear (Clear) 03/11/21 03:55 Urine pH 6.0 (4.5-7.5) 03/11/21 03:55 Ur Specific [place] 1.034 (1.000-1.030) H 03/11/21 03:55 Urine Protein Trace (Negative) H 03/11/21 03:55 Urine Glucose (UA) Negative (Negative) 03/11/21 03:55 Urine Ketones Trace (Negative) H 03/11/21 03:55 Urine Blood Negative (Negative) 03/11/21 03:55 Urine Nitrite Negative (Negative) 03/11/21 03:55 Urine Bilirubin Negative (Negative) 03/11/21 03:55 Urine Urobilinogen Negative (Negative) 03/11/21 03:55 Ur Leukocyte Esterase Negative (Negative) 03/11/21 03:55 Urine WBC (Auto) 1-5 /hpf (0-5) 03/11/21 03:55 Urine RBC (Auto) 0-4 /hpf (0-4) 03/11/21 03:55 U Hyaline Cast (Auto) 1-5 /lpf (0-5) 03/11/21 03:55 U Epithel Cells (Auto) 20-30 /lpf (0-5) H 03/11/21 03:55 Urine Bacteria (Auto) Negative (Negative) 03/11/21 03:55 COVID-19 Eval Order CovFluRsv at [facility] 03/10/21 22:47 SARS-CoV-2 (PCR) POSITIVE (Negative) A* 03/10/21 22:47 Hepatitis C Ab Screen Neg (Neg) 03/11/21 01:21 Influenza Type A (PCR) Negative (Neg) 03/10/21 22:47 Influenza Type B (PCR) Negative (Neg) 03/10/21 22:47 RSV (RT-PCR) Negative (Neg) 03/10/21 22:47 Blood Type A Positive 03/11/21 05:35 Antibody Screen NEGATIVE 03/11/21 05:35 Impressions Chest X-Ray 03/10/21 22:31 XR chest 1V portable CLINICAL HISTORY: SEPSIS COMPARISON STUDY: Chest radiograph January 10, 2011. FINDINGS: Lung volumes are at the lower limits of normal. There is no pneumothorax or pleural the effusion. No evidence for pulmonary edema. Cardiac size is at the upper limits of normal. There are are mild multifocal bilateral airspace opacities, greater on the left. IMPRESSION: Mild multifocal bilateral airspace opacities, greater within the left lung. The findings suggest an infectious process such as viral pneumonia. ACT 112: Negative or not required by law. Electronically signed by: Armen Madsen M.D. 03/11/2021 8:29 AM Abdomen/Pelvis CT 03/10/21 23:56 CT SCAN OF THE ABDOMEN AND PELVIS WITH IV CONTRAST CLINICAL HISTORY: Generalized abdominal pain. Covid. COMPARISON STUDY: No priors. TECHNIQUE: Following the IV administration of 90 cc of Optiray 300, CT scan of the abdomen and pelvis is performed from the lung bases to the proximal femora. Images are reviewed in the axial, sagittal, and coronal planes. IV contrast was administered without complication. A dose lowering technique was utilized adhering to the principles of ALARA. CT DOSE: 1476.43 mGy.cm FINDINGS: Lung bases: The heart is normal in size and without pericardial effusion. There is patchy groundglass consolidation identified at both lung bases and trace pleural effusions. Liver: The contrast-enhanced liver is normal in size, contour, and attenuation. There is no intrahepatic biliary ductal dilatation. The hepatic veins and portal veins are patent. Gallbladder: Unremarkable. Spleen: Normal in size and attenuation. Pancreas: Unremarkable. Adrenal glands: Unremarkable. Kidneys: The contrast enhanced kidneys are normal in size and without hydronephrosis. The kidneys enhance symmetrically. A 1.3 cm cyst is noted in the left kidney. Abdominal vasculature: The abdominal aorta is normal in course and caliber. Bowel: No bowel obstruction is seen. The appendix is well-visualized and normal. Peritoneum: There is no intraperitoneal free air or abdominal ascites. Lymphadenopathy: None. Pelvic viscera: The bladder, prostate, and seminal vesicles are normal as visualized. Skeletal structures: No lytic or blastic lesions are seen. There is mild lumbosacral spondylosis. IMPRESSION: 1. There are no acute infectious or inflammatory findings in the abdomen or pelvis. 2. Multifocal groundglass consolidation at the lung bases is consistent with the reported history of a viral pneumonia. Radiographic follow-up to resolution is recommended. 3. Trace pleural effusions. 4. Additional findings as above. ACT 112: Negative or not required by law. Electronically signed by: Kenan Maria M.D. 03/11/2021 8:16 AM Hospital Course (1) Pneumonia due to COVID-19 virus: Improved on decadron. Declined remdesivir on admission. Was also started on antibiotics which were discontinued quickly after admission. Hypoxia resolved prior to discharge and he passed a two step respiratory assessment prior to departure home. (2) Chronic pain: cont mobic and gabapentin with prn tramadol per home regimen. At time of discharge he was ambulating around the room and mentating clearly. Original symptoms on admission had resolved and he was feeling well per his report. He was hemodynamically stable and afebrile and oxygenating well on room air. He was discharged in stable condition with close primary care followup recommended. Total Time Total Time Spent Total Time Spent (In Minutes): 60 Total Time Includes: Examination of the Patient, Discharge Planning, Medication Reconciliation and Communication With Other Providers Discharge Plan Discharge Items Patient Disposition: Home - Self-Care Reason For Visit: COVID PNX Discharge Diagnosis: COVID pneumonia Condition on Discharge: Good Activity: Resume your previous activity Non-emergency contact: Primary Care Provider Call non-emergency contact if: you have any medication questions and your symptoms worsen Follow-up/Referrals: Ayo Gotti MD [Primary Care Provider] - (Date & Time 03/15/2021 10:40 AM Provider Ayo Gotti MD Department Family Practice [facility] PLEASE NOTE THAT THIS IS A TELEHEALTH APPOINTMENT. PLEASE FOLLOW THE INSTRUCTIONS PROVIDED IN YOUR EMAIL. IF YOU HAVE ANY QUESTIONS REGARDING THIS APPOINTMENT, PLEASE CALL ) Diet: Regular Addtl Attending Provider Instructions: Please take all medications as instructed on discharge list below. Please followup with your primary care provider within one week of discharge to ensure you are still doing well after returning home. Please follow all public health isolation guidance as instructed per Center for Disease Control (CDC) below, and [place] Dept of Health. It is required that you remain on home isolation for 10 days, and come off isolation only if your symptoms are improved and you have been fever-free for at least 24 hours. Please continue to wear a mask in public places and practice social distancing where appropriate. A repeat chest xray may be considered in 4 weeks to ensure complete resolution of your pneumonia. This may be ordered by your primary care provider on follow- up. It was a pleasure taking care of you! Please call if you have any questions or problems. You can reach a [facility] hospitalist on duty at [facility] 24 hours a day by calling [phone]. Take care of yourself. Patricia Cruz, DO [facility] Hospitalist Addtl Set Illustrator Provider Instructions: Home Isolation COVID-19 Instructions The following information about Home Isolation is from the CDC Website: https://www.cdc.gov/coronavirus/2019-ncov/hcp/ffinjxgi-qpoxfef-fwzlqi.html Stay home except to get medical care People who are mildly ill with COVID-19 are able to isolate at home during their illness. You should restrict activities outside your home, except for getting medical care. Do not go to work, school, or public areas. Avoid using public transportation, ride-sharing, or taxis. Separate yourself from other people and animals in your home People: As much as possible, you should stay in a specific room and away from other people in your home. Also, you should use a separate bathroom, if available. Animals: You should restrict contact with pets and other animals while you are sick with COVID-19, just like you would around other people. Although there have not been reports of pets or other animals becoming sick with COVID-19, it is still recommended that people sick with COVID-19 limit contact with animals until more information is known about the virus. When possible, have another member of your household care for your animals while you are sick. If you are sick with COVID-19, avoid contact with your pet, including petting, snuggling, being kissed or licked, and sharing food. If you must care for your pet or be around animals while you are sick, wash your hands before and after you interact with pets and wear a face mask. Call ahead before visiting your doctor If you have a medical appointment, call the healthcare provider and tell them that you have or may have COVID-19. This will help the healthcare providers office take steps to keep other people from getting infected or exposed. Wear a face mask You should wear a face mask when you are around other people (e.g., sharing a room or vehicle) or pets and before you enter a healthcare providers office. If you are not able to wear a face mask (for example, because it causes trouble breathing), then people who live with you should not stay in the same room with you, or they should wear a face mask if they enter your room. Cover your coughs and sneezes Cover your mouth and nose with a tissue when you cough or sneeze. Throw used tissues in a lined trash can. Immediately wash your hands with soap and water for at least 20 seconds or, if soap and water are not available, clean your hands with an alcohol-based hand buttonholer that contains at least 60% alcohol. Clean your hands often Wash your hands often with soap and water for at least 20 seconds, especially after blowing your nose, coughing, or sneezing; going to the bathroom; and before eating or preparing food. If soap and water are not readily available, use an alcohol-based hand buttonholer with at least 60% alcohol, covering all surfaces of your hands and rubbing them together until they feel dry. Soap and water are the best option if hands are visibly dirty. Avoid touching your eyes, nose, and mouth with unwashed hands. Avoid sharing personal household items You should not share dishes, drinking glasses, cups, eating utensils, towels, or bedding with other people or pets in your home. After using these items, they should be washed thoroughly with soap and water. Clean all high-touch surfaces everyday High touch surfaces include counters, tabletops, doorknobs, bathroom fixtures, toilets, phones, keyboards, tablets, and bedside tables. Also, clean any surfaces that may have blood, stool, or body fluids on them. Use a household cleaning spray or wipe, according to the label instructions. Labels contain instructions for safe and effective use of the cleaning product including precautions you should take when applying the product, such as wearing gloves and making sure you have good ventilation during use of the product. Monitor your symptoms Seek prompt medical attention if your illness is worsening (e.g., difficulty breathing).Beforeseeking care, call your healthcare provider and tell them that you have, or are being evaluated for, COVID-19. Put on a face mask before you enter the facility. These steps will help the healthcare providers office to keep other people in the office or waiting room from getting infected or exposed. Ask your healthcare provider to call the local or state health department. Persons who are placed under active monitoring or facilitated self- monitoring should follow instructions provided by their local health department or occupational health professionals, as appropriate. When working with your local health department check their available hours. If you have a medical emergency and need to call 911, notify the dispatch personnel that you have, or are being evaluated for COVID-19. If possible, put on a face mask before emergency medical services arrive. Discontinuing home isolation Patients with confirmed COVID-19 should remain under home isolation precautions until the risk of secondary transmission to others is thought to be low. The decision to discontinue home isolation precautions should be made on a [id number] basis, in consultation with healthcare providers and state and local health departments. Pending Studies at Discharge: No Stand-Alone Forms: [facility] Medications and DC Order Prescriptions: Continued meloxicam 15 mg tablet 15 mg PO QAM RF: 0 omeprazole 40 mg capsule,delayed release(DR/EC) 40 mg PO DAILY RF: 0 tramadol 50 mg tablet 100 mg PO Q6 PRN (Reason: Severe Pain (Scale Score 7-10)) RF: 0 gabapentin 800 mg tablet 800 mg PO TID RF: 0 clobetasol 0.05 % ointment 1 applic TOPICAL BID RF: 0 Discharge Orders: Discharge Order (Routine); Ordered 03/12/21 Ordered By: Patricia Cruz Admission Data Admit Date/Time: 03/10/21 23:59 Attending Provider: Patricia Cruz Admit Provider: Rodríguez Durbin Primary Care Provider: Ayo Gotti Other Interventions: Discharge Summary Assessment (RN) Last Done: 03/12/21 10:53
--- NOTE | 2021-03-16 13:25 | Pharmacy Report ---
ED Pharmacist Culture FollowUP - Culture Follow Up Note Date of Service: March 16, 2021 Notes:: Patients culture result updated to probable anaerobic gram negative bacilli with no sensitivities to follow (11/06). This was previously reported by charge nurse to Dr. Cruz on 03/13/21 as a gram negative bacilli. Messaged [facility] hospitalist team who confirmed pt was contacted and had PCP f/u. No further action.
== END 2021-03-12 12:13 | disposition home or self-care (01) | DRG 177 ==
LOC: ED 22:08 → 2E 23:59